=== PATIENT | female | born 1995 | race African-American/Black ===

== ENCOUNTER 2023-11-08 14:40 | Observation (INO) | payer OTHER ==
[2023-11-08 17:38] VITALS: BP 136/77; PULSE 77; RESP 18; TEMP 99
== END 2023-11-08 16:02 | disposition left against medical advice (07) ==
LOC: MLD 14:40
PROVIDERS: ADMIT Obstetrics & Gynecology; ATTEND Obstetrics & Gynecology
DX: O13.3 Gestational [pregnancy-induced] hypertension without significant proteinuria, third trimester (principal); Z3A.38 38 weeks gestation of pregnancy
CPT/HCPCS: G0378